=== PATIENT | female | born 1955 | race Two or more races ===

== ENCOUNTER → 2018-03-31 | Outpatient (CLI) | payer OTHER, MEDICAID | LOC: FIMAGING 07:33 | PROVIDERS: ATTEND Physician Assistant Medical | DX: M48.061 Spinal stenosis, lumbar region without neurogenic claudication (principal); M43.16 Spondylolisthesis, lumbar region; E03.9 Hypothyroidism, unspecified ==

== ENCOUNTER → 2018-06-16 | Outpatient (CLI) | payer OTHER, MEDICAID | LOC: CIMAGING 10:54 | PROVIDERS: ATTEND Neurological Surgery | DX: M43.16 Spondylolisthesis, lumbar region (principal) | CPT/HCPCS: 72100-PO ==